=== PATIENT | female | born 1950 | race African-American/Black ===

== ENCOUNTER → 2017-03-26 | Outpatient (CLI) | payer MEDICARE, OTHER ==
--- NOTE | 2017-03-26 13:39 | RAD ---
Bone densitometry scan, 03/26/2017: History: Postmenopausal screening The lumbar spine and right hip were examined utilizing a DEXA technique. The bone mineral density of the lumbar spine as measured from the L1-L4 levels is 1.25 g/sq cm, giving a T score of 0.6. This is in the normal range. The lumbar spine T score on the previous study of 11/30/2011 was 1.1. The total T score at the right hip is 1.7 which is also in the normal range. The right hip T score on the previous exam was 2.6. IMPRESSION: Normal bone mineral density measurements.
== END | disposition home or self-care (01) ==
LOC: DXRAD 12:53
PROVIDERS: ATTEND Family Medicine
DX: Z13.820 Encounter for screening for osteoporosis (principal); Z00.00 Encounter for general adult medical examination without abnormal findings; Z78.0 Asymptomatic menopausal state
CPT/HCPCS: 77080

== ENCOUNTER 2017-06-24 13:08 | Emergency (ER) | payer MEDICARE, OTHER ==
[~2017-06-24] VITALS: Ht 160 cm; Wt 95.3 kg
[2017-06-24] MEDS ORDERED: fentaNYL PF 100 MCG/2 ML VIAL IV PRN (13:30)
[2017-06-24] MEDS ORDERED: fentaNYL PF 100 MCG/2 ML VIAL IV ONE (13:30)
--- NOTE | 2017-06-24 13:34 | PHYS DOC ---
Adult General Chief Complaint Chief Complaint: SHOULDER INJURY HPI HPI Patient is a 66-year-old female who was outside getting ready to look at the eclipse when she fell, her right shoulder. She is right-handed. She denies other injury. She denies head injury or loss of consciousness. She comes by EMS. Ortho: Dr. Bird, she sees him for her knees. Review of Systems Review of Systems Musculoskeletal: Denies musculoskeletal pain other than right shoulder Integument: Abrasion to her right elbow Current Medications Current Medications Current Medications Medications (Trade) Dose Ordered Sig/Sara Start Time Stop Time Status Last Admin Dose Admin Fentanyl Citrate (Fentanyl 2ml Vial) 100 mcg 1X ONCE 06/24/17 13:30 06/24/17 13:31 DC Allergies Allergies Allergies Coded Allergies Type Severity Reaction Last Updated Verified sulfamethoxazole Allergy Unknown 06/24/17 Yes trimethoprim Allergy Unknown 06/24/17 Yes Physical Exam Physical Exam Constitutional: Well developed, well nourished, alert, mentating normally, uncomfortable due to right shoulder pain. HENT: Normocephalic, atraumatic, bilateral external ears normal, nose normal. [] Eyes: conjunctiva normal, no discharge. [] Neck: Normal range of motion, no tenderness, supple, no stridor. C-collar was removed by me after normal neck exam. Skin: Warm, dry, no erythema, no rash. [] Extremities: Left upper and bilateral lower extremities: No tenderness, no cyanosis, no clubbing, ROM intact, no edema. Right upper extremity: Clavicle nontender. Shoulder joint without obvious deformity. Shoulder joint tenderness palpation. Proximal humerus tender to palpation. Distal humerus, elbow, forearm , wrist, hand nontender without deformity. Patient is able to flex and extend at elbow without difficulty. She is able to extend her shoulder somewhat without assistance but with some discomfort. Passive extension of the shoulder causes some discomfort but is tolerated. Internal and external rotation of the shoulder joint: Patient is able to do this without assistance and with minimal complaints. Neurologic: Alert and oriented X 3, normal motor function, normal sensory function, no focal deficits noted. [] EKG EKG [] Radiology/Procedures Radiology/Procedures Three-view x-rays of the right shoulder read by me. No dislocation. No bony injury. No fracture. Normal right shoulder x-rays. [] Course & Med Decision Making Course & Med Decision Making Pertinent Labs and Imaging studies reviewed. (See chart for details) 66-year-old female fell with injury to her right shoulder. Her x-rays are negative for fracture. I discussed possible rotator cuff injury with her. She does have an appointment 1 week from today with her orthopedic surgeon, scheduled for knee pain. She was placed in a sling. Family is here to drive her. [] Dragon Disclaimer Dragon Disclaimer This chart was dictated in whole or in part using Voice Recognition software in a busy, high-work load, and often noisy Emergency Department environment. It may contain unintended and wholly unrecognized errors or omissions. Departure Departure: Impression: Primary Impression: Right shoulder injury Additional Impression: Injury of right rotator cuff Disposition: HOME, SELF-CARE Condition: IMPROVED Referrals: JOAO RIDLEY DO (PCP) Patient Instructions: Rotator Cuff Injury Additional Instructions: As we discussed, there is nothing broken, but I'm concerned that you might have injured your rotator cuff ligaments. It's important to have that rechecked, and can recheck that for you when you see him next week. Wear the sling for comfort, but at least 2-3 times a day, remove the sling and gently range of motion your arm/shoulder to keep it from getting stiff. You may have a family member help you gently move it around. Ice 15-20 minutes out of every 1-2 hours for a week. Continue taking meloxicam as you are doing. If needed for more severe pain, hydrocodone as prescribed, not while driving. No driving until you are released to drive by Dr. Bird. No work until you are released to go back to work by him. Scripts Hydrocodone Bit/Acetaminophen (NORCO 5-325 TABLET) 1 Each Tablet 1-2 TAB PO PRN Q6HRS Y for PAIN, #20 TAB 0 Refills Prov: ALEXANDER AUGUSTINE MD 06/24/17 Problem Qualifiers ALEXANDER AUGUSTINE MD Jun 24, 2017 13:33
[2017-06-24] MEDS ORDERED: ONDANSETRON PF 4 MG/2 ML VIAL. IV ONE (13:45)
[2017-06-24] MEDS ORDERED: HYDR-971 PO (14:25)
[2017-06-24 14:47] VITALS: BP 120/67
--- NOTE | 2017-06-24 15:06 | RAD ---
Shoulder plain films Indication: Pain and difficult removing status post fall Technique: 3 views of the right shoulder Comparison: None Findings: No acute fracture or dislocation. Mild acromioclavicular joint osteoarthritis. Visualized right lung is clear. Impression: No acute fracture or dislocation. MTDD
== END 2017-06-24 15:02 | disposition home or self-care (01) ==
LOC: ER 13:08
DX: S46.091A Other injury of muscle(s) and tendon(s) of the rotator cuff of right shoulder, initial encounter (principal); Z88.1 Allergy status to other antibiotic agents; W19.XXXA Unspecified fall, initial encounter; Y93.89 Activity, other specified; Y99.8 Other external cause status; Y92.89 Other specified places as the place of occurrence of the external cause
CPT/HCPCS: 73030; 99284; J3010

== ENCOUNTER 2019-04-06 07:32 | Emergency (ER) | payer MEDICARE, OTHER ==
[~2019-04-06 07:32] MED LIST: HYDR-3165 PO
--- NOTE | 2019-04-06 07:44 | PHYS DOC ---
Past History Past Medical History: Hypertension Smoking: Non-smoker Alcohol Use: None Drug Use: None Adult General HPI HPI Patient is a 68-year-old female presents with dizziness that started shortly prior to arrival. Patient was getting out of her car doing some rotation on twisting motions when she started feeling this dizziness. It is worse with her eyes open. There is been nausea but no vomiting. No weakness in the arms or legs. No headache. No ear pain. Closing her eyes makes the symptoms better. Symptoms are moderate in intensity. Reports the dizziness is a spinning sensation.[] Review of Systems Review of Systems Constitutional: Denies fever or chills [] Eyes: Denies change in visual acuity, redness, or eye pain [] HENT: Denies nasal congestion or sore throat [] Respiratory: Denies cough or shortness of breath [] Cardiovascular: No chest pain or palpitations[] GI: Denies abdominal pain, nausea, vomiting, bloody stools or diarrhea [] : Denies dysuria or hematuria [] Musculoskeletal: Denies back pain or joint pain [] Integument: Denies rash or skin lesions [] Neurologic: Denies headache, focal weakness or sensory changes, see history of present illness [] Endocrine: Denies polyuria or polydipsia [] All other systems were reviewed and found to be within normal limits, except as documented in this note. Allergies Allergies Allergies Coded Allergies Type Severity Reaction Last Updated Verified sulfamethoxazole Allergy Unknown 06/24/17 Yes trimethoprim Allergy Unknown 06/24/17 Yes Physical Exam Physical Exam Constitutional: Well developed, well nourished, no acute distress, non-toxic appearance. [] HENT: Normocephalic, atraumatic, bilateral external ears normal, TMs are clear, there is no blood or fluid behind the TMs. Oropharynx moist, no oral exudates, nose normal. [] Eyes: PERRLA, EOMI, conjunctiva normal, no discharge. [] Neck: Normal range of motion, no tenderness, supple, no stridor. No carotid bruit [] Cardiovascular:Heart rate regular rhythm, no murmur [] Lungs & Thorax: Bilateral breath sounds clear to auscultation [] Abdomen: Bowel sounds normal, soft, no tenderness, no masses, no pulsatile masses. [] Skin: Warm, dry, no erythema, no rash. [] Back: No tenderness, no CVA tenderness. [] Extremities: No tenderness, no cyanosis, no clubbing, ROM intact, symmetric pretibial edema bilateral lower extremities 1-2+. [] Neurologic: Alert and oriented X 3, normal motor function, normal sensory funct ion, no focal deficits noted. Patient has nystagmus with fast component to the left. This improves within 15-30 seconds however reoccurs with any head movement. [] Psychologic: Affect normal, judgement normal, mood normal. [] EKG EKG [] Radiology/Procedures Radiology/Procedures [] Course & Med Decision Making Course & Med Decision Making Pertinent Labs and Imaging studies reviewed. (See chart for details) ED course: Patient arrived, was placed in bed, and tolerated exam well. She was given antiemetics as well as antivertigo medicine which significantly improved her symptoms. Discussed findings and plan with the patient who voiced marjoriean bushra. She was discharged in improved condition. Medical decision making: She appears to have peripheral vertigo. There is no ev idence of a stroke syndrome. No evidence of this being cardiac related. No evidence of intractable nausea or vomiting.[] Dragon Disclaimer Dragon Disclaimer This electronic medical record was generated, in whole or in part, using a voice recognition dictation system. Departure Departure: Impression: Primary Impression: Peripheral vertigo Disposition: 01 HOME, SELF-CARE Condition: IMPROVED Referrals: JOAO RIDLEY DO (PCP) Follow-up in 2 days Patient Instructions: Benign Positional Vertigo Additional Instructions: Follow-up with your regular doctor in 2 days. Return to the ER if worsening dizziness, unable to tolerate liquids, or any other concerns. Scripts Meclizine Hcl (MECLIZINE HCL) 25 Mg Tablet 1 TAB PO PRN TID for vertigo, #30 TAB Prov: ESME COTTRELL DO 04/06/19 Ondansetron Hcl (ZOFRAN) 4 Mg Tablet 1 TAB PO Q6HRS for nausea or vomiting, #20 TAB Prov: ESME COTTRELL DO 04/06/19 Problem Qualifiers Primary Impression: Peripheral vertigo Laterality: unspecified laterality Qualified Codes: H81.399 - Other peripheral vertigo, unspecified ear ESME COTTRELL DO Apr 06, 2019 07:44
[2019-04-06] MEDS ORDERED: MECLIZINE 12.5 MG TABLET. PO ONE (08:00)
[2019-04-06] MEDS ORDERED: ONDANSETRON ODT 4 MG TAB.RAPDIS PO ONE (08:00)
[2019-04-06] MEDS ORDERED: MECL25TA3 PO (09:03)
[2019-04-06] MEDS ORDERED: ONDA4TAB7 PO (09:03)
[2019-04-06 09:22] VITALS: BP 126/73
== END 2019-04-06 09:25 | disposition home or self-care (01) ==
LOC: ER 07:32
DX: H81.399 Other peripheral vertigo, unspecified ear (principal); I10 Essential (primary) hypertension; Z88.1 Allergy status to other antibiotic agents; Z88.2 Allergy status to sulfonamides
CPT/HCPCS: 99283; J8597; Q0162

== ENCOUNTER → 2019-07-08 | Outpatient (CLI) | payer OTHER, MEDICARE ==
[~2019-07-08] MED LIST changes: +MECL25TA3 PO; +ONDA4TAB7 PO
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
== END | disposition home or self-care (01) ==
LOC: CT 11:30
PROVIDERS: ATTEND Specialist
DX: M47.896 Other spondylosis, lumbar region (principal); M25.78 Osteophyte, vertebrae; M48.02 Spinal stenosis, cervical region; M54.2 Cervicalgia; M54.5 Low back pain; E04.1 Nontoxic single thyroid nodule; V89.2XXA Person injured in unspecified motor-vehicle accident, traffic, initial encounter; Y93.89 Activity, other specified; Y92.89 Other specified places as the place of occurrence of the external cause; Y99.8 Other external cause status
CPT/HCPCS: 70450; 72100; 72125

== ENCOUNTER 2021-01-15 12:31 | Emergency (ER) | payer OTHER, MEDICARE ==
[~2021-01-15] VITALS: Ht 160 cm; Wt 92.0 kg
[~2021-01-15 12:31] MED LIST changes: +MECL-75 PO; -MECL25TA3 PO
[2021-01-15 12:51] VITALS: BP 149/72
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
[2021-01-15] MEDS ORDERED: KETOROLAC 30 MG/ML VIAL. ONE (14:13)
[2021-01-15] MEDS ORDERED: KETOROLAC 30 MG/ML VIAL. IM ONE (14:30)
== END 2021-01-15 14:32 | disposition home or self-care (01) ==
LOC: ER 12:31
DX: R07.89 Other chest pain (principal); R51.9 Headache, unspecified; M25.552 Pain in left hip; M54.2 Cervicalgia; G89.11 Acute pain due to trauma; I10 Essential (primary) hypertension; Z88.1 Allergy status to other antibiotic agents; Z88.2 Allergy status to sulfonamides; V49.88XA Car occupant (driver) (passenger) injured in other specified transport accidents, initial encounter; Y93.89 Activity, other specified; Y92.488 Other paved roadways as the place of occurrence of the external cause; Y99.8 Other external cause status
CPT/HCPCS: 70450; 71045; 72125; 72170; 99285-25

== ENCOUNTER → 2021-02-22 | Day surgery (SDC) | payer OTHER, MEDICARE ==
[~2021-02-22] MED LIST changes: +LIDOCAINE 1% PF 30 ML VIAL. ONE
[2021-02-22 12:46] VITALS: BP 129/69
== END | disposition home or self-care (01) ==
LOC: SURG 12:31
PROVIDERS: ATTEND Anesthesiology
DX: M46.1 Sacroiliitis, not elsewhere classified (principal); M79.10 Myalgia, unspecified site; M19.90 Unspecified osteoarthritis, unspecified site; I10 Essential (primary) hypertension; Z98.891 History of uterine scar from previous surgery
CPT/HCPCS: 99204; G0463

== ENCOUNTER → 2021-03-15 | Outpatient (CLI) | payer MEDICARE, OTHER ==
[2021-02-22 12:46] VITALS: BP 129/69
[~2021-03-15] MED LIST changes: -LIDOCAINE 1% PF 30 ML VIAL. ONE
--- NOTE | 2021-03-16 08:33 | RAD ---
DATE: March 15, 2021 EXAM: DIGITAL SCREEN BILAT W/CAD HISTORY: Screening study. COMPARISON: 2016 and 2019 This study was interpreted with the benefit of Computerized Aided Detection (CAD). FINDINGS: Breast Density: HETERO The breast parenchyma is heterogenously dense, which could reduce sensitivity of mammography. Breast parenchyma level C.. There are no dominant suspicious masses, suspicious microcalcifications or evidence of architectural distortion. IMPRESSION: No mammographic indicators for malignancy. BI-RADS CATEGORY: 1 NEGATIVE RECOMMENDED FOLLOW-UP: 12M 12 MONTH FOLLOW-UP PQRS compliance statement: Patient information was entered into a reminder system with a target due date March 16, 2022 for the next mammogram. Mammography is a sensitive method for finding small breast cancers, but it does not detect them all and is not a substitute for careful clinical examination. A negative mammogram does not negate a clinically suspicious finding and should not result in delay in biopsying a clinically suspicious abnormality. "Our facility is accredited by the [employer] Mammography Program." The patient's breast density may affect the ability of mammography to detect breast cancer. There are 4 categories of breast density, A, B, C and D. Breast density A means that most of the breast tissue is replaced with adipose tissue and therefore is not dense. Breast density B means that the breast tissue is mildly dense and scattered. Breast density C means that the breast tissue is heterogeneously dense. Breast density D means that the breast tissue is very dense. Breast densities especially C and D may decrease the sensitivity of mammography to detect breast cancer. Therefore, the patient may benefit from 3-D breast mammography (3D breast tomography) as a part of their screening mammogram. Insurance may or may not pay for this additional imaging. The patient's breast density based on today's mammogram is category C.
== END ==
LOC: MAMMO 08:49
PROVIDERS: ATTEND Family Medicine
DX: Z12.31 Encounter for screening mammogram for malignant neoplasm of breast (principal)
CPT/HCPCS: 77067

== ENCOUNTER → 2021-05-09 | Outpatient (CLI) | payer MEDICARE, OTHER ==
[2021-02-22 12:46] VITALS: BP 129/69
--- NOTE | 2021-05-09 17:18 | RAD ---
BILATERAL LOWER EXTREMITY DUPLEX ARTERY ULTRASOUND Indication: Reason: PVD, CLAUDICATION, HTN Comparison: None. Procedure: Real-time grayscale, color flow Doppler, and Doppler spectral waveform analysis of the art erial system of the lower extremity is performed. Findings: There are triphasic waveforms throughout the right and left lower extremity with the exception of bip hasic right distal posterior tibial artery and biphasic left peroneal artery. No arterial occlusion i s identified. There are mildly elevated peak systolic velocities of the right common femoral artery, 179 cm/s, right proximal superficial femoral artery, 161 cm/s, left common femoral artery, 212 cm/s, and proximal left superficial femoral artery, 172 cm/s. IMPRESSION: 1. There is no arterial occlusion. 2. There are predominantly triphasic waveforms throughout the bilateral lower extremities. 3. There are mildly elevated peak systolic velocities as detailed above. Electronically signed by: Lamonte Gomez MD (05/09/2021 5:16 PM) [id number]
== END ==
LOC: US 12:37
PROVIDERS: ATTEND Podiatrist Foot & Ankle Surgery
DX: I73.9 Peripheral vascular disease, unspecified (principal)
CPT/HCPCS: 93925